=== PATIENT | male | born 1975 | race Caucasian/White ===

== ENCOUNTER → 2019-05-26 08:21 | Outpatient (CLI) | payer SELFPAY ==
--- NOTE | 2019-05-26 08:33 | CT_ITS ---
STUDY: CT MAXILLOFACIAL SINUSES REASON FOR EXAM: Male, 43 years old. RIGHT CHEEK TRAUMA 1 WEEK AGO- FALL. BLEEDING FROM RIGHT NOSE RADIATION DOSAGE (If Supplied By Facility): CTDIvol = ( 29.38 ) mGy, DLP = ( 576.84 ) mGycm TECHNIQUE: The patient was scanned in a multi detector CT scanner. High resolution axial imaging was performed without the administration of intravenous contrast material. Sagittal and coronal images were reconstructed. Individualized dose optimization techniques were used for this CT. COMPARISON: None. FINDINGS: FRONTAL SINUSES: Normal aeration, without mucosal inflammatory disease. ETHMOIDAL SINUSES: Normal aeration, with moderate bilateral mucosal inflammatory disease. MAXILLARY SINUSES: Normal aeration, with mild mucosal inflammatory disease on the left. Significant opacification on the right with near complete opacification. Coexisting fracture of the anterior, and lateral bolanos of the right maxillary sinus. There is fracture of the floor of the right orbit with coexisting fracture of the lateral wall of the right orbit. No evidence of extra ocular muscle entrapment on the right side. Acute fracture of right zygomatic arch.. Obliteration of the bilateral ostiomeatal units. SPHENOIDAL SINUSES: Normal aeration, with mild bilateral mucosal inflammatory disease. There is patency of the bilateral maxillary infundibuli with normal uncinate processes, ethmoid bullae, and hiatus semilunaris. Normal bilateral middle turbinates. Normal bilateral inferior turbinates. Normal midline nasal septum. There is patency of the bilateral nasal airways. Very mild deviation of the nasal septum to the left with a small nasal spur on the left. CT/Sinus/Facial Bone IMPRESSION: Significant opacification of the right maxillary sinus with near complete opacification. Coexisting fracture of the anterior, and lateral bolanos of the right maxillary sinus. There is fracture of the floor of the right orbit with coexisting fracture of the lateral wall of the right orbit. No evidence of extra ocular muscle entrapment on the right side. Acute fracture of right zygomatic arch. Moderate mucoperiosteal thickening of the bilateral ethmoidal sinuses with mild mucoperiosteal thickening of the bilateral sphenoidal sinuses. Obliteration of the bilateral ostiomeatal units. Electronically Signed: Scooter Lemon MD at 9:41 EST Tel [phone], Service support ,
== END ==
PROVIDERS: Family Provider Family Medicine; PCP Family Medicine; Referring Provider Family Medicine; Visit Provider Family Medicine
DX: S09.93XA Unspecified injury of face, initial encounter (principal)
CPT/HCPCS: 70486